=== PATIENT | male | born 1980 | race Caucasian/White ===

== ENCOUNTER 2017-08-14 23:09 | Inpatient (IN) | payer OTHER ==
[~2017-08-14] VITALS: Ht 190.5 cm; Wt 150.7 kg
[~2017-08-14 23:09] MED LIST: BACT800T5 PO; METH750T2 PO; MOBI15TA PO
[2017-08-14 23:22] VITALS: BP 166/84; PULSE 115; RESP 18; TEMP 100.8; O2SAT 96
[2017-08-14 23:40] VITALS: PULSE 112; RESP 22; TEMP 102.9; O2SAT 97
[2017-08-14 23:50] VITALS: BP 167/84; PULSE 112; RESP 18; TEMP 102.9; O2SAT 97
[2017-08-15] VITALS (8 sets, daily range): BP systolic 107–138; BP diastolic 51–68; PULSE 85–102; RESP 16–20; TEMP 97.6–99.4; O2SAT 96–99
[2017-08-15] MEDS ORDERED: ACETAMINOPHEN 500 MG CPLT PO ONE
[2017-08-15] MEDS ORDERED: IBUPROFEN 800 MG TAB PO ONE
--- NOTE | 2017-08-15 00:14 | RADRPT ---
EXAM DATE/TIME: 08/15/2017 00:03 [facility] COMPARISON: No previous studies available for comparison. INDICATIONS : Chest pain. MEDICAL HISTORY : None. SURGICAL HISTORY : None. ENCOUNTER: Initial ACUITY: 2 days PAIN SCORE: 6/10 LOCATION: Bilateral chest FINDINGS: A single view of the chest demonstrates the lungs to be symmetrically aerated without evidence of mas s, infiltrate or effusion. The cardiomediastinal contours are unremarkable. Osseous structures are intact. CONCLUSION: No acute disease. Jorge Garcia MD on August 15, 2017 at 0:12 Board Certified Radiologist. This report was verified electronically.
[2017-08-15 00:19] LABS: GLUCOSE,URINE 500 mg/dL (NEG); KETONE, URINE NEG (NEG); NITRITE,URINE NEG (NEG); PH, URINE 6.5 (5.0-8.5)
[2017-08-15 00:31] LABS: BLOOD, URINE TRACE (NEG); METHOD OF COLLECTION CLEAN CATCH; URINE COLOR YELLOW (YELLW/STRAW)
[2017-08-15 00:32] LABS: SQUAMOUS EPITHELIAL CELL URINE 0-5 /hpf (0-5)
[2017-08-15 00:33] LABS: BACTERIA, URINE OCC /hpf; COMMENT (UR) CULTURE INDICATED; CULTURE IF INDICATED CULTURE INDICATED
[2017-08-15] MEDS ORDERED: cefTRIAXone INJ 1,000 MG in SODIUM CHLORIDE 0.9% INJ 100 ML IV ONE (00:45)
--- NOTE | 2017-08-15 00:46 | PD ---
HPI Chief Complaint: Cold / Flu Symptoms Time Seen by Provider: 23:47 Travel History International Travel<30 days: No Contact w/Intl Traveler<30days: No Traveled to known affect area: No History of Present Illness HPI 36-year-old male presents to the emergency department by private transportation the care of his throat complaint of not feeling well 2 days. Patient states she's had persistent cough times one month and has been seen by his primary care provider without improvement after steroid and oral antibiotic. Patient states while recently in the past 48 hours as developed myalgias arthralgias headaches persistent cough and has noted some dysuria. Patient does not have any discharge. Patient has been treated in the past for urinary tract infection. Patient does not report nausea vomiting abdominal pain or diarrhea. Patient rates overall pain 8/10 in intensity. Patient is unable to identify exacerbating or alleviating factors. Patient did take a one-time dose of DayQuil earlier in the afternoon. PFSH Past Medical History Narrative Medical Negative past history negative surgical history no tobacco use nursing notes reviewed Diminished Hearing: No Tetanus Vaccination: < 5 Years ?: Not Social History Alcohol Use: No Tobacco Use: No Substance Use: No Allergies-Medications (Allergen,Severity, Reaction): Coded Allergies: No Known Allergies (Verified , 10/09/14) Reported Meds & Prescriptions Reported Meds & Active Scripts Active Review of Systems Except as stated in HPI: all other systems reviewed are Neg General / Constitutional: Positive: Fever, Chills HENT: Positive: Congestion Cardiovascular: No: Chest Pain or Discomfort Respiratory: Positive: Cough, No: Shortness of Breath Gastrointestinal: Positive: Nausea, No: Vomiting, Diarrhea, Abdominal Pain Genitourinary: Positive: Dysuria, No: Flank Pain, Discharge Musculoskeletal: Positive: Myalgias, Arthralgias Skin: No Rash Neurologic: No: Weakness, Dizziness, Syncope Psychiatric: No: Anxiety Hematologic/Lymphatic: No: Easy Bruising, Lymph Node Enlargement Physical Exam Narrative GENERAL: Well-developed well-nourished male in no acute distress but noted to have fever associated tachycardia and elevated blood pressure is triage vital signs SKIN: Warm and dry. HEAD: Normocephalic. EYES: No scleral icterus. No injection or drainage. ENT: Mucous membranes moist airway is patent no tonsillar exudative change edema or erythema; tympanic membranes no redness dullness or loss of landmarks NECK: Supple, trachea midline. No JVD or lymphadenopathy. No meningismus no nuchal rigidity CARDIOVASCULAR: Increased Regular rate and rhythm without murmurs, gallops, or rubs. RESPIRATORY: Breath sounds equal bilaterally. No accessory muscle use. GASTROINTESTINAL: Abdomen soft, non-tender, nondistended. MUSCULOSKELETAL: No cyanosis, or edema. BACK: Nontender without obvious deformity. No CVA tenderness. Data Data Last Documented VS Vital Signs Date Time Temp Pulse Resp B/P (MAP) Pulse Ox O2 Delivery O2 Flow Rate FiO2 08/15/17 02:30 85 16 124/64 (84) 99 Room Air 08/15/17 01:15 99.1 Orders Orders ^ Saline Lock (08/14/17 23:47) Ibuprofen (Motrin) (08/15/17 00:00) Acetaminophen (Tylenol) (08/15/17 00:00) Influenzae A/B Antigen (08/14/17 23:47) Chest, Single Ap (08/14/17 ) Urinalysis - C+S If Indicated (08/14/17 23:47) Urine Culture (08/15/17 00:00) Ceftriaxone Inj (Rocephin Inj) (08/15/17 00:45) Blood Culture (08/15/17 00:46) Complete Blood Count With Diff (08/15/17 00:46) Lactic Acid (08/15/17 00:46) Sodium Chlor 0.9% 1000 Ml Inj (Ns 1000 M (08/15/17 01:30) Lactic Acid (08/15/17 02:07) Labs Laboratory Tests Test 08/15/17 00:00 08/15/17 01:10 08/15/17 02:20 Urine Collection Type CLEAN CATCH Urine Color YELLOW Urine Turbidity SLIGHT Urine pH 6.5 Urine Specific [place] 1.023 Urine Protein TRACE mg/dL Urine Glucose (UA) 500 mg/dL Urine Ketones NEG mg/dL Urine Occult Blood TRACE Urine Nitrite NEG Urine Bilirubin NEG Urine Leukocyte Esterase MOD Urine RBC 4-9 /hpf Urine WBC 25-49 /hpf Urine WBC Clumps OCC Urine Squamous Epithelial Cells 0-5 /hpf Urine Amorphous Sediment SMALL Urine Bacteria OCC /hpf Microscopic Urinalysis Comment CULTURE INDICATED White Blood Count 16.1 TH/MM3 Red Blood Count 5.00 MIL/MM3 Hemoglobin 14.1 GM/DL Hematocrit 42.3 % Mean Corpuscular Volume 84.5 FL Mean Corpuscular Hemoglobin 28.2 PG Mean Corpuscular Hemoglobin Concent 33.4 % Red Cell Distribution Width 12.8 % Platelet Count 157 TH/MM3 Mean Platelet Volume 7.7 FL Neutrophils (%) (Auto) 85.6 % Lymphocytes (%) (Auto) 7.4 % Monocytes (%) (Auto) 6.0 % Eosinophils (%) (Auto) 0.1 % Basophils (%) (Auto) 0.9 % Neutrophils # (Auto) 13.8 TH/MM3 Lymphocytes # (Auto) 1.2 TH/MM3 Monocytes # (Auto) 1.0 TH/MM3 Eosinophils # (Auto) 0.0 TH/MM3 Basophils # (Auto) 0.1 TH/MM3 CBC Comment AUTO DIFF Differential Comment AUTO DIFF CONFIRMED Platelet Estimate NORMAL Platelet Morphology Comment CLUMPED Red Cell Morphology Comment NORMAL Lactic Acid Level 3.6 mmol/L MDM Medical Decision Making Medical Screen Exam Complete: Yes Emergency Medical Condition: Yes Medical Record Reviewed: Yes Interpretation(s) Last Impressions Chest X-Ray 08/14/17 0000 Signed Impressions: Service Date/Time: Sunday, August 15, 2017 00:03 - CONCLUSION: No acute disease. Jorge Garcia MD CBC & BMP Diagram 08/15/17 01:10 Vital Signs Date Time Temp Pulse Resp B/P (MAP) Pulse Ox O2 Delivery O2 Flow Rate FiO2 08/15/17 02:30 85 16 124/64 (84) 99 Room Air 08/15/17 01:15 99.1 95 16 132/66 (88) 98 Room Air 08/14/17 23:50 102.9 112 18 167/84 (111) 97 Room Air 08/14/17 23:49 18 98 Room Air 08/14/17 23:40 102.9 112 22 97 08/14/17 23:22 100.8 115 18 166/84 (111) 96 UA: Differential Diagnosis Viral syndrome, influenza, pneumonia, UTI, sepsis, sirs, dehydration Narrative Course IV access obtained specimens collected and sent for resulting patient administered normal saline bolus along with ibuprofen weight-based in acetaminophen weight-based Urinalysis abnormal with positive white blood cells red blood cells and bacteria cultures indicated influenza A/B antigen negative Review of abnormal urinalysis patient will be given IV antibiotic Rocephin 1 g prior to administration of antibiotics blood culture specimens Lactic acid is elevated 3.6 additional IV fluids administered Patient continues complaining of myalgias arthralgias and feeling weak therefore will place patient in for IV antibiotics and observation status for ongoing IV fluid hydration and ongoing IV antibiotics. repeat lactic acid ordered Sepsis Criteria SIRS Criteria (2 or more): Temp > 100.9 or < 96.8, Heart rate over 90, RR > 20 or PaCO2 < 32, WBC > 67032, < 4000 or > 10% bands Sepsis Criteria (SIRS+source): Infect source susp/known (urine) Physician Communication Physician Communication discussed with [facility] service MD Diagnosis Primary Impression: Sepsis Qualified Codes: A41.9 - Sepsis, unspecified organism Additional Impression: UTI (urinary tract infection) Qualified Codes: N30.00 - Acute cystitis without hematuria Admitting Information Admitting Physician Requests: Observation Megan Elizalde MD Aug 15, 2017 00:46
[2017-08-15 01:27] LABS: AUTOMATED NEUTROPHIL # 13.8 TH/MM3 (1.8-7.7); BASOPHIL # 0.1 TH/MM3 (0-0.2); BASOPHIL % 0.9 % (0.0-2.0); EOSINOPHIL % 0.1 % (0.0-4.0); HEMATOCRIT 42.3 % (39.0-51.0); LYMPH % 7.4 % (9.0-44.0); LYMPHOCYTE # 1.2 TH/MM3 (1.0-4.8); MEAN CELL VOLUME 84.5 FL (80.0-100.0); MEAN CORPUSCULAR HEMOGLOBIN 28.2 PG (27.0-34.0); MEAN CORPUSCULAR HGB CONC 33.4 % (32.0-36.0); NEUT % 85.6 % (16.0-70.0); PLATELET COUNT 157 TH/MM3 (150-450); RED CELL DISTRIBUTION WIDTH 12.8 % (11.6-17.2); WHITE BLOOD COUNT 16.1 TH/MM3 (4.0-11.0)
[2017-08-15] MEDS ORDERED: SODIUM CHLOR 0.9% 1000 ML INJ 1,000 ML IV ONE (01:30)
[2017-08-15 01:35] LABS: HEMO FLAGS AUTO DIFF
[2017-08-15 01:52] LABS: PLATELET ESTIMATE SMEAR NORMAL (NORMAL); PLATELET MORPHOLOGY CLUMPED (NORMAL); SCAN/DIFF AUTO DIFF CONFIRMED
[2017-08-15] MEDS ORDERED: MAGNESIUM HYDROXIDE SUSP 30 ML CUP PO PRN (03:30)
[2017-08-15] MEDS ORDERED: SENNOSIDES 8.6 MG TAB PO PRN (03:30)
[2017-08-15] MEDS ORDERED: LACTULOSE SYRUP 20 GM/30 ML CUP PO PRN (03:30)
[2017-08-15] MEDS ORDERED: BISACODYL 10 MG SUPP RECTAL PRN (03:30)
[2017-08-15] MEDS ORDERED: NALOXONE HCL 0.4 MG/ML AMP IV PUSH PRN (03:30)
[2017-08-15] MEDS ORDERED: SODIUM CHLORIDE 0.9% FLUSH 10 ML FLUSH IV FLUSH PRN (03:30)
[2017-08-15] MEDS ORDERED: ONDANSETRON HCL 4 MG/2 ML VIAL IVP PRN (03:30)
[2017-08-15 03:45] LABS: CHLORIDE 96 MEQ/L (98-107); POTASSIUM 3.9 MEQ/L (3.5-5.1); SODIUM (NA) 129 MEQ/L (136-145)
[2017-08-15 03:48] LABS: ANION GAP 12 MEQ/L (5-15); BICARBONATE 20.9 MEQ/L (21.0-32.0); BLOOD UREA NITROGEN 13 MG/DL (7-18)
[2017-08-15 03:51] LABS: ALT (GPT) 28 U/L (12-78); AST (GOT) 11 U/L (15-37)
[2017-08-15 03:52] LABS: GLOMERULAR FILTRATION RATE 53 ML/MIN (>89)
[2017-08-15 03:53] LABS: TOTAL BILIRUBIN ADULT 1.4 MG/DL (0.2-1.0)
[2017-08-15 03:54] LABS: ALKALINE PHOSPHATASE 127 U/L (45-117)
[2017-08-15] MEDS: SODIUM CHLOR 0.9% 1000 ML INJ 1,000 ML IV SCH ×3 (06:55→21:17)
[2017-08-15] MEDS: SODIUM CHLORIDE 0.9% FLUSH 10 ML FLUSH IV FLUSH SCH ×2 (08:39→21:18)
--- NOTE | 2017-08-15 09:52 | RADRPT ---
EXAM DATE/TIME: 08/15/2017 07:56 [facility] COMPARISON: No previous studies available for comparison. INDICATIONS : Abnormal labs. Sepsis. Urinary tract infection. MEDICAL HISTORY : Sepsis. Urinary tract infection. SURGICAL HISTORY : None. ENCOUNTER: Initial ACUITY: 4-6 days PAIN SCORE: 2/10 LOCATION: Bilateral flank MEASUREMENTS: RIGHT KIDNEY: 13.6 x 6.6 x 8.6 cm LEFT KIDNEY: 14.3 x 7.7 x 7.9 cm FINDINGS: RIGHT KIDNEY: 5.1 cm cyst midportion right kidney without stone or obstruction. LEFT KIDNEY: 6.8 cm cyst midportion left kidney without stone or obstruction. BLADDER: Within normal limits given the degree of distension. CONCLUSION: Bilateral renal cysts, negative for obstruction or stone.. Raleigh Peguero MD FACR on August 15, 2017 at 9:49 Board Certified Radiologist. This report was verified electronically.
[2017-08-15] MEDS ORDERED: GLUCAGON 1 MG/ML VIAL OTHER PRN (11:45)
[2017-08-15] MEDS ORDERED: DEXTROSE 50% IN WATER 50 ML VIAL(D50) IV PUSH PRN (11:45)
[2017-08-15] MEDS: INSULIN ASPART SUPPLEMENTAL SCALE SQ SCH ×3 (12:00→21:00)
--- NOTE | 2017-08-15 12:08 | HHI.HP ---
[facility] Service [facility] Primary Care Physician Alex Akers M.D. Admission Diagnosis sepsis; uti Diagnoses: Chief Complaint: Palpable myocardial perfusion old and he is also he is here I think all of the knee is worse Travel History International Travel<30 Days: No Contact w/Intl Traveler <30 Da: No Traveled to Known Affected Are: No History of Present Illness This patient's 36-year-old gentleman with one-month history of intermittent subjective fevers and chills and a cough with some phlegm. There were no objective fevers. He saw his primary care physician and was given antibiotics, steroids and antitussive's. He does not improve consistently. He had some good days and some bad days. This past 3 days he had decreased urine output with urgency. He came to emergency room was found have urinary tract infection as well as a random blood sugar of 277. Patient was admitted to the hospital for further evaluation and treatment. He has no pain complaint Review of Systems Constitutional: DENIES: Diaphoretic episodes, Fatigue, Fever, Weight gain, Weight loss, Chills, Dizziness, Change in appetite, Night Sweats Endocrine: DENIES: Heat/cold intolerance, Polydipsia, Polyuria, Polyphagia Eyes: DENIES: Blurred vision, Diplopia, Eye inflammation, Eye pain, Vision loss , Photosensitivity, Double Vision Ears, nose, mouth, throat: DENIES: Tinnitus, Hearing loss, Vertigo, Nasal discharge, Oral lesions, Throat pain, Hoarseness, Ear Pain, Running Nose, Epistaxis, Sinus Pain, Toothache, Odynophagia Respiratory: DENIES: Apneas, Cough, Snoring, Wheezing, Hemoptysis, Sputum production, Shortness of breath Cardiovascular: DENIES: Chest pain, Palpitations, Syncope, Dyspnea on Exertion , PND, Lower Extremity Edema, Orthopnea, Claudication Gastrointestinal: DENIES: Abdominal pain, Black stools, Bloody stools, Constipation, Diarrhea, Nausea, Vomiting, Difficulty Swallowing, Anorexia Genitourinary: DENIES: Sexual dysfunction, Urinary frequency, Urinary incontinence, Urgency, Hematuria, Dysuria, Nocturia, Penile Discharge, Testicular Pain, Testicular Swelling Musculoskeletal: DENIES: Joint pain, Muscle aches, Stiffness, Joint Swelling, Back pain, Neck pain Integumentary: DENIES: Abnormal pigmentation, Nail changes, Pruritus, Rash Hematologic/lymphatic: DENIES: Bruising, Lymphadenopathy Immunologic/allergic: DENIES: Eczema, Urticaria Neurologic: DENIES: Abnormal gait, Headache, Localized weakness, Paresthesias, Seizures, Speech Problems, Tremor, Poor Balance Psychiatric: DENIES: Anxiety, Confusion, Mood changes, Depression, Hallucinations, Agitation, Suicidal Ideation, Homicidal Ideation, Delusions Except as stated in HPI: all other systems reviewed are Neg Past Family Social History Past Medical History Denies Past Surgical History Denies Reported Medications Reviewed in the EMR, [id number] Pepcid and recent antibiotics, steroids for respiratory infection Allergies: Coded Allergies: No Known Allergies (Verified Allergy, Unknown, 08/15/17) Active Ordered Medications reviewed in the EMR Family History Mother and father alive and well Social History No tobacco or alcohol dependency, works for [employer] Physical Exam Vital Signs Vital Signs Date Time Temp Pulse Resp B/P (MAP) Pulse Ox O2 Delivery O2 Flow Rate FiO2 08/15/17 07:50 97.6 89 20 107/51 (69) 98 08/15/17 03:40 99.2 88 16 138/68 (91) 98 Room Air 08/15/17 02:30 85 16 124/64 (84) 99 Room Air 08/15/17 01:15 99.1 95 16 132/66 (88) 98 Room Air 08/14/17 23:50 102.9 112 18 167/84 (111) 97 Room Air 08/14/17 23:49 18 98 Room Air 08/14/17 23:40 102.9 112 22 97 08/14/17 23:22 100.8 115 18 166/84 (111) 96 Physical Exam GENERAL: This is a ill-appearing, obese, well-developed patient, in no apparent distress. SKIN: No rashes, ecchymoses or lesions. Cool and dry. HEAD: Atraumatic. Normocephalic. No temporal or scalp tenderness. EYES: Pupils equal round and reactive. Extraocular motions intact. No scleral icterus. No injection or drainage. ENT: Nose without bleeding, purulent drainage or septal hematoma. Throat without erythema, tonsillar hypertrophy or exudate. Uvula midline. Airway patent. NECK: Trachea midline. No JVD or lymphadenopathy. Supple, nontender, no meningeal signs. CARDIOVASCULAR: Regular rate and rhythm without murmurs, gallops, or rubs. RESPIRATORY: Clear to auscultation. Breath sounds equal bilaterally. No wheezes , rales, or rhonchi. GASTROINTESTINAL: Abdomen soft, non-tender, nondistended. No hepato-splenomegaly , or palpable masses. No guarding. MUSCULOSKELETAL: Extremities without clubbing, cyanosis, or edema. No joint tenderness, effusion, or edema noted. No calf tenderness. Negative Homans sign bilaterally. NEUROLOGICAL: Awake and alert. Cranial nerves II through XII intact. Motor and sensory grossly within normal limits. Five out of 5 muscle strength in all muscle groups. Normal speech. Laboratory Laboratory Tests Test 08/15/17 00:00 08/15/17 01:10 08/15/17 02:20 Urine Collection Type CLEAN CATCH Urine Color YELLOW Urine Turbidity SLIGHT Urine pH 6.5 Urine Specific [place] 1.023 Urine Protein TRACE Urine Glucose (UA) 500 Urine Ketones NEG Urine Occult Blood TRACE Urine Nitrite NEG Urine Bilirubin NEG Urine Leukocyte Esterase MOD Urine RBC 4-9 Urine WBC 25-49 Urine WBC Clumps OCC Urine Squamous Epithelial Cells 0-5 Urine Amorphous Sediment SMALL Urine Bacteria OCC Microscopic Urinalysis Comment CULTURE INDICATED White Blood Count 16.1 Red Blood Count 5.00 Hemoglobin 14.1 Hematocrit 42.3 Mean Corpuscular Volume 84.5 Mean Corpuscular Hemoglobin 28.2 Mean Corpuscular Hemoglobin Concent 33.4 Red Cell Distribution Width 12.8 Platelet Count 157 Mean Platelet Volume 7.7 Neutrophils (%) (Auto) 85.6 Lymphocytes (%) (Auto) 7.4 Monocytes (%) (Auto) 6.0 Eosinophils (%) (Auto) 0.1 Basophils (%) (Auto) 0.9 Neutrophils # (Auto) 13.8 Lymphocytes # (Auto) 1.2 Monocytes # (Auto) 1.0 Eosinophils # (Auto) 0.0 Basophils # (Auto) 0.1 CBC Comment AUTO DIFF Differential Comment AUTO DIFF CONFIRMED Platelet Estimate NORMAL Platelet Morphology Comment CLUMPED Red Cell Morphology Comment NORMAL Blood Urea Nitrogen 13 Creatinine 1.50 Random Glucose 277 Total Protein 7.4 Albumin 3.3 Calcium Level 8.5 Alkaline Phosphatase 127 Aspartate Amino Transf (AST/SGOT) 11 Alanine Aminotransferase (ALT/SGPT) 28 Total Bilirubin 1.4 Sodium Level 129 Potassium Level 3.9 Chloride Level 96 Carbon Dioxide Level 20.9 Anion Gap 12 Estimat Glomerular Filtration Rate 53 Lactic Acid Level 3.6 1.8 Date/Time Source Procedure Growth Status 08/15/17 01:10 Blood Peripheral Aerobic Blood Culture Pending Received 08/15/17 01:10 Blood Peripheral Anaerobic Blood Culture Pending Received 08/15/17 00:00 Nasal Washing Influenza Types A,B Antigen (REBECCA) - Final NEGATIVE FOR FLU A AND B ANTIGEN.... Complete 08/15/17 00:00 Urine Clean Catch Urine Culture Pending Received Result Diagram: 08/15/17 0110 08/15/17 0110 Imaging Last Impressions Renal Ultrasound 08/15/17 0000 Signed Impressions: Service Date/Time: Tuesday, August 15, 2017 07:56 - CONCLUSION: Bilateral renal cysts, negative for obstruction or stone.. Raleigh Peguero MD FACR Chest X-Ray 08/14/17 0000 Signed Impressions: Service Date/Time: Tuesday, August 15, 2017 00:03 - CONCLUSION: No acute disease. Jorge Garcia MD Septic Shock Reassessment Heart: Regular rate and rhythm Lungs: Clear Skin: Warm Peripheral Pulses: Bounding Right Radial Bounding Left Radial Bounding Right Popliteal Bounding Left Popliteal Bounding Right Dorsalis Pedis Bounding Left Dorsalis Pedis Bounding Right Posterior Tibial Bounding Left Posterior Tibial Caprini VTE Risk Assessment Caprini VTE Risk Assessment: Mod/High Risk (score >= 2) Caprini Risk Assessment Model Point Value = 1 Point Value = 2 Point Value = 3 Point Value = 5 Age 41-60 Minor surgery BMI > 25 kg/m2 Swollen legs Varicose veins or History of unexplained or recurrent spontaneous Oral contraceptives or hormone replacement Sepsis (< 1 month) Serious lung disease, including pneumonia (< 1 month) Abnormal pulmonary function Acute myocardial infarction Congestive heart failure (< 1 month) History of inflammatory bowel disease Medical patient at bed rest Age 61-74 Arthroscopic surgery Major open surgery (> 45 min) Laparoscopic surgery (> 45 min) Malignancy Confined to bed (> 72 hours) Immobilizing plaster cast Central venous access Age >= 75 History of VTE Family history of VTE Factor V Leiden Prothrombin [id number] Lupus anticoagulant Anticardiolipin antibodies Elevated serum homocysteine Heparin-induced thrombocytopenia Other congenital or acquired thrombophilia Stroke (< 1 month) Elective arthroplasty Hip, pelvis, or leg fracture Acute spinal cord injury (< 1 month) Prophylaxis Regimen Total Risk Factor Score Risk Level Prophylaxis Regimen 0-1 Low Early ambulation 2 Moderate Order ONE of the following: *Sequential Compression Device (SCD) *Heparin 5000 units SQ BID 3-4 Higher Order ONE of the following medications: *Heparin 5000 units SQ TID *Enoxaparin/Lovenox 40 mg SQ daily (WT < 150 kg, CrCl > 30 mL/min) *Enoxaparin/Lovenox 30 mg SQ daily (WT < 150 kg, CrCl > 10-29 mL/min) *Enoxaparin/Lovenox 30 mg SQ BID (WT < 150 kg, CrCl > 30 mL/min) AND/OR *Sequential Compression Device (SCD) 5 or more Highest Order ONE of the following medications: *Heparin 5000 units SQ TID (Preferred with Epidurals) *Enoxaparin/Lovenox 40 mg SQ daily (WT < 150 kg, CrCl > 30 mL/min) *Enoxaparin/Lovenox 30 mg SQ daily (WT < 150 kg, CrCl > 10-29 mL/min) *Enoxaparin/Lovenox 30 mg SQ BID (WT < 150 kg, CrCl > 30 mL/min) AND *Sequential Compression Device (SCD) Assessment and Plan Problem List: (1) Sepsis ICD Code: A41.9 - Sepsis, unspecified organism Status: Acute Plan: likely secondary to UTI, cultures pending White cell count pending Lactic acid improved (2) Hyperglycemia ICD Code: R73.9 - Hyperglycemia, unspecified Plan: We'll add sliding scale insulin Follow-up hemoglobin A1c Continue IV hydration (3) UTI (urinary tract infection) ICD Code: N39.0 - Urinary tract infection, site not specified Status: Acute Plan: Continue empiric Rocephin and follow cultures Patient with improved lactic acid. Follow fever and white cell counts (4) Dyspepsia ICD Code: R10.13 - Epigastric pain Plan: Pepcid twice a day Code Status full code Discussed Condition With Patient, nursing team Physician Certification 2 Midnight Certification Type: Admission for Inpatient Services Order for Inpatient Services The services are ordered in accordance with Medicare regulations or non- Medicare payer requirements, as applicable. In the case of services not specified as inpatient-only, they are appropriately provided as inpatient services in accordance with the 2-midnight benchmark. Estimated LOS (days): 2 2 days is the estimated time the patient will need to remain in the hospital, assuming treatment plan goals are met and no additional complications. Post-Hospital Plan: Home Problem Qualifiers (1) Sepsis: Qualified Codes: A41.9 - Sepsis, unspecified organism (2) UTI (urinary tract infection): Qualified Codes: N30.00 - Acute cystitis without hematuria Amy Trimble MD Aug 15, 2017 12:08
[2017-08-15] MEDS: FAMOTIDINE 20 MG TAB PO SCH ×2 (12:10→21:18)
[2017-08-15] MEDS: ENOXAPARIN SODIUM 40 MG/0.4 ML SYRINGE SQ SCH (13:20)
[2017-08-15] MEDS: ACETAMINOPHEN 325 MG TAB PO PRN ×2 (15:22→19:06)
[2017-08-15 19:14] LABS: HEMOGLOBIN A1b 1.2 %; HEMOGLOBIN Ao 83.6 %; HEMOGLOBIN F 0.9 %; HEMOGLOBIN P3 4.1 %
[2017-08-16] VITALS: BP 113/60; PULSE 97; RESP 20; TEMP 99.8; O2SAT 99
[2017-08-16] MEDS ORDERED: cefTRIAXone INJ 1,000 MG in SODIUM CHLORIDE 0.9% INJ 100 ML IV SCH (01:00)
[2017-08-16] MEDS ORDERED: BENZONATATE 100 MG CAP PO ONE (01:15)
[2017-08-16] MEDS: SODIUM CHLOR 0.9% 1000 ML INJ 1,000 ML IV SCH (05:14)
[2017-08-16 06:33] LABS: AUTOMATED NEUTROPHIL # 7.3 TH/MM3 (1.8-7.7); BASOPHIL % 0.2 % (0.0-2.0); EOSINOPHIL # 0.2 TH/MM3 (0-0.4); HEMATOCRIT 37.6 % (39.0-51.0); LYMPH % 15.5 % (9.0-44.0); LYMPHOCYTE # 1.5 TH/MM3 (1.0-4.8); MEAN CELL VOLUME 83.9 FL (80.0-100.0); MEAN CORPUSCULAR HEMOGLOBIN 28.5 PG (27.0-34.0); MEAN CORPUSCULAR HGB CONC 33.9 % (32.0-36.0); MONO % 6.8 % (0.0-8.0); NEUT % 75.5 % (16.0-70.0); PLATELET COUNT 143 TH/MM3 (150-450); RED BLOOD COUNT 4.48 MIL/MM3 (4.50-5.90); RED CELL DISTRIBUTION WIDTH 12.7 % (11.6-17.2); WHITE BLOOD COUNT 9.8 TH/MM3 (4.0-11.0)
[2017-08-16 06:37] LABS: HEMO FLAGS DIFF FINAL
[2017-08-16 07:19] LABS: ALKALINE PHOSPHATASE 118 U/L (45-117); ALT (GPT) 30 U/L (12-78); ANION GAP 9 MEQ/L (5-15); AST (GOT) 24 U/L (15-37); BICARBONATE 22.5 MEQ/L (21.0-32.0); BLOOD UREA NITROGEN 9 MG/DL (7-18); CHLORIDE 104 MEQ/L (98-107); GLOMERULAR FILTRATION RATE 107 ML/MIN (>89); POTASSIUM 3.9 MEQ/L (3.5-5.1); SODIUM (NA) 135 MEQ/L (136-145); TOTAL BILIRUBIN ADULT 0.9 MG/DL (0.2-1.0)
[2017-08-16] MEDS: SODIUM CHLORIDE 0.9% FLUSH 10 ML FLUSH IV FLUSH SCH (07:28)
[2017-08-16 08:00] VITALS: BP 152/100; PULSE 94; RESP 18; TEMP 97.4; O2SAT 98
[2017-08-16] MEDS: INSULIN ASPART SUPPLEMENTAL SCALE SQ SCH (08:00)
[2017-08-16] MEDS: FAMOTIDINE 20 MG TAB PO SCH (08:35)
[2017-08-16] MEDS: ENOXAPARIN SODIUM 40 MG/0.4 ML SYRINGE SQ SCH (08:39)
[2017-08-16] MEDS ORDERED: INFLUENZA VIRUS VACCINE (QUADRIVALENT) 0.5 ML SYR IM ONE (10:00)
[2017-08-16] MEDS ORDERED: CIPR500T2 PO (11:54)
--- NOTE | 2017-08-16 11:54 | HHI.DCPOC ---
Discharge Care Plan Diagnosis: (1) UTI (urinary tract infection) (2) Sepsis (3) Hyperglycemia Goals to Promote Your Health * To prevent worsening of your condition and complications * To maintain your health at the optimal level Directions to Meet Your Goals Take your medications as prescribed Follow your dietary instruction Follow activity as directed Keep your appointments as scheduled Take your immunizations and boosters as scheduled If your symptoms worsen call your PCP, if no PCP go to Urgent Care Center or Emergency Room Smoking is Dangerous to Your Health. Avoid second hand smoke Call the 24-hour hour crisis hotline for domestic abuse at Amy Trimble MD Aug 16, 2017 11:54
--- NOTE | 2017-08-16 11:59 | HHI.DS ---
Discharge Summary Admission Date Aug 15, 2017 at 03:23 Discharge Date: Aug 16, 2017 Admitting Diagnosis sepsis; uti (1) Sepsis ICD Code: A41.9 - Sepsis, unspecified organism Status: Acute (2) Hyperglycemia ICD Code: R73.9 - Hyperglycemia, unspecified (3) UTI (urinary tract infection) ICD Code: N39.0 - Urinary tract infection, site not specified Status: Acute (4) Dyspepsia ICD Code: R10.13 - Epigastric pain Procedures None Brief History - From Admission This patient's 36-year-old gentleman with one-month history of intermittent subjective fevers and chills and a cough with some phlegm. There were no objective fevers. He saw his primary care physician and was given antibiotics, steroids and antitussive's. He does not improve consistently. He had some good days and some bad days. This past 3 days he had decreased urine output with urgency. He came to emergency room was found have urinary tract infection as well as a random blood sugar of 277. Patient was admitted to the hospital for further evaluation and treatment. He has no pain complaint CBC/BMP: 08/16/17 0555 08/16/17 0555 Significant Findings Laboratory Tests Test 08/15/17 00:00 08/15/17 01:10 08/15/17 02:20 08/16/17 05:55 Urine Glucose (UA) 500 mg/dL (NEG) Urine Occult Blood TRACE (NEG) Urine Leukocyte Esterase MOD (NEG) Urine RBC 4-9 /hpf (0-3) Urine WBC 25-49 /hpf (0-5) Urine WBC Clumps OCC (NONE) Urine Bacteria OCC /hpf (NONE) White Blood Count 16.1 TH/MM3 (4.0-11.0) Neutrophils (%) (Auto) 85.6 % (16.0-70.0) 75.5 % (16.0-70.0) Lymphocytes (%) (Auto) 7.4 % (9.0-44.0) Neutrophils # (Auto) 13.8 TH/MM3 (1.8-7.7) Monocytes # (Auto) 1.0 TH/MM3 (0-0.9) Platelet Morphology Comment CLUMPED (NORMAL) Creatinine 1.50 MG/DL (0.60-1.30) Random Glucose 277 MG/DL (74-106) 153 MG/DL (74-106) Albumin 3.3 GM/DL (3.4-5.0) 2.7 GM/DL (3.4-5.0) Alkaline Phosphatase 127 U/L (45-117) 118 U/L (45-117) Aspartate Amino Transf (AST/SGOT) 11 U/L (15-37) Total Bilirubin 1.4 MG/DL (0.2-1.0) Sodium Level 129 MEQ/L (136-145) 135 MEQ/L (136-145) Chloride Level 96 MEQ/L (98-107) Carbon Dioxide Level 20.9 MEQ/L (21.0-32.0) Estimat Glomerular Filtration Rate 53 ML/MIN (>89) Lactic Acid Level 3.6 mmol/L (0.4-2.0) Red Blood Count 4.48 MIL/MM3 (4.50-5.90) Hemoglobin 12.8 GM/DL (13.0-17.0) Hematocrit 37.6 % (39.0-51.0) Platelet Count 143 TH/MM3 (150-450) Calcium Level 7.9 MG/DL (8.5-10.1) Imaging Last Impressions Renal Ultrasound 08/15/17 0000 Signed Impressions: Service Date/Time: Tuesday, August 15, 2017 07:56 - CONCLUSION: Bilateral renal cysts, negative for obstruction or stone.. Raleigh Peguero MD FACR Chest X-Ray 08/14/17 0000 Signed Impressions: Service Date/Time: Tuesday, August 15, 2017 00:03 - CONCLUSION: No acute disease. Jorge Garcia MD PE at Discharge GENERAL: This is a well-nourished, well-developed patient, in no apparent distress. CARDIOVASCULAR: Regular rate and rhythm without murmurs, gallops, or rubs. RESPIRATORY: Clear to auscultation. Breath sounds equal bilaterally. No wheezes , rales, or rhonchi. GASTROINTESTINAL: Abdomen soft, non-tender, nondistended. Normal active bowel sounds MUSCULOSKELETAL: Extremities without clubbing, cyanosis, or edema. NEURO: Alert & Oriented x4 to person, place, time, situation. Moves all ext x4 Pt update on day of discharge Patient seen today in follow-up for UTI with gram neg rods. Plan discussed with patient as well as discharge planning. Patient appears to be hyperglycemic consistently. He will need to follow-up with his primary care doctor for further recognition and treatment He will need dietary lifestyle adjustments Hospital Course this patient was seen and treated for sepsis which resolved very remarkably. With IV fluids and IV antibiotics his indices improved dramatically. Patient was found to have gram-negative rods in urine His hemoglobin A1c was 5.9. Still has random blood sugars which are elevated which likely reflects Early diabetes. Lifestyle modifications discussed with patient Pt Condition on Discharge: Good Discharge Disposition: Discharge Home Discharge Time: <= 30 minutes Discharge Instructions DIET: Follow Instructions for: Diabetic Diet Activities you can perform: Regular-No Restrictions Follow up Referrals: PCP Follow-up - 1 Week New Medications: Ciprofloxacin (Ciprofloxacin) 500 Mg Tab 500 MG PO BID for Infection, #14 TAB 0 Refills Amy Trimble MD Aug 16, 2017 11:59
== END 2017-08-16 13:38 | disposition home or self-care (01) | DRG 872 ==
LOC: PHED 23:09 → PHEDA 08-15 03:23 → PH3A 08-15 05:38
PROVIDERS: ADMIT Hospitalist; ATTEND Hospitalist
DX: A41.9 Sepsis, unspecified organism (principal); N39.0 Urinary tract infection, site not specified; E11.65 Type 2 diabetes mellitus with hyperglycemia; R30.0 Dysuria; Z23 Encounter for immunization; R10.13 Epigastric pain
CPT/HCPCS: 71010; 76775; 80053; 81001; 82948; 83036; 83605; 85025; 87040; 87077; 87086; 87186; 87804; 90471; 90686; 96361; 96365; 99285; G0008; J0696; J1650; J2405; J7030; Q2038

== ENCOUNTER 2017-10-17 12:09 | Emergency (ER) | payer OTHER ==
[~2017-10-17] VITALS: Ht 190.5 cm; Wt 149.4 kg
[~2017-10-17 12:09] MED LIST changes: -BACT800T5 PO; +CIPR500T2 PO; -METH750T2 PO; -MOBI15TA PO
[2017-10-17 12:12] VITALS: BP 123/61; PULSE 104; RESP 18; TEMP 99.4; O2SAT 96
[2017-10-17] MEDS ORDERED: FENO2.5C PO (12:18)
--- NOTE | 2017-10-17 12:53 | PD ---
HPI Chief Complaint: Cold / Flu Symptoms Time Seen by Provider: 12:24 Travel History International Travel<30 days: No Contact w/Intl Traveler<30days: No Traveled to known affect area: No History of Present Illness HPI 37-year-old male here with sore throat, fever, cough 2 days. Symptom severity is moderate. No aggravating or alleviating factors. Temperature this morning was 102 which is brought down after taking 600 mg ibuprofen. No sick contacts. No foreign travel. PFSH Past Medical History Cancer: No Cardiovascular Problems: No High Cholesterol: Yes Chemotherapy: No Diminished Hearing: No Endocrine: No Genitourinary: No Immune Disorder: No Musculoskeletal: No Neurologic: No Psychiatric: No Reproductive: No Respiratory: No Radiation Therapy: No Tetanus Vaccination: Unknown ?: Not Past Surgical History Other Surgery: No Social History Alcohol Use: No Tobacco Use: No Substance Use: No Allergies-Medications (Allergen,Severity, Reaction): Coded Allergies: No Known Allergies (Verified Allergy, Unknown, 10/17/17) Reported Meds & Prescriptions Reported Meds & Active Scripts Active Reported Fenofibrate 50 Mg Cap 50 Mg PO DAILY Review of Systems Except as stated in HPI: all other systems reviewed are Neg General / Constitutional: Positive: Fever Eyes: No: Visual changes HENT: Positive: Sore Throat Cardiovascular: No: Chest Pain or Discomfort Respiratory: Positive: Cough Gastrointestinal: No: Abdominal Pain Genitourinary: No: Dysuria Physical Exam Narrative GENERAL: Alert male. Nontoxic appearing SKIN: Warm and dry. No rash HEAD: Normocephalic. EYES: No injection or drainage. THROAT: Pharyngeal erythema. No tonsillar hypertrophy or exudate. Uvula is midline. Airway is patent. NECK: Supple, trachea midline. No lymphadenopathy. No nuchal rigidity CARDIOVASCULAR: Regular rate and rhythm without murmurs, gallops, or rubs. RESPIRATORY: Breath sounds equal bilaterally. No accessory muscle use. GASTROINTESTINAL: Abdomen soft, non-tender, nondistended. MUSCULOSKELETAL: No cyanosis, or edema. BACK: Nontender without obvious deformity. No CVA tenderness. Data Data Last Documented VS Vital Signs Date Time Temp Pulse Resp B/P (MAP) Pulse Ox O2 Delivery O2 Flow Rate FiO2 10/17/17 12:12 99.4 104 18 123/61 (81) 96 Orders Orders Group A Rapid Strep Screen (10/17/17 12:28) Influenzae A/B Antigen (10/17/17 12:28) Strep Culture (Group A) (10/17/17 12:30) MDM Medical Decision Making Medical Screen Exam Complete: Yes Emergency Medical Condition: Yes Interpretation(s) Influenza A positive Differential Diagnosis Influenza, strep pharyngitis, viral illness Narrative Course 37-year-old male with flulike symptoms. His vital signs are stable. He is ill but nontoxic-appearing. Influenza A is positive. Patient be treated for flu Diagnosis Primary Impression: Influenza A Referrals: Primary Care Physician Departure Forms: Tests/Procedures, Work Release Enter return to work date: Oct 21, 2017 Additional Instructions: Tylenol and ibuprofen for fever. Stay well hydrated by drinking plenty of fluids. Rest. Return if he developed new or worsening symptoms Scripts Oseltamivir (Tamiflu) 75 Mg Cap 75 MG PO BID for Mgmt Viral Infection for 5 Days, #10 CAP 0 Refills Prov: Molly Hubbard 10/17/17 Disposition: 01 DISCHARGE HOME Condition: Stable Molly Hubbard Oct 17, 2017 12:53
[2017-10-17] MEDS ORDERED: OSEL75 PO (12:54)
== END 2017-10-17 13:05 | disposition home or self-care (01) ==
LOC: PHEFT 12:09
DX: J09.X2 Influenza due to identified novel influenza A virus with other respiratory manifestations (principal); E78.00 Pure hypercholesterolemia, unspecified; Z79.899 Other long term (current) drug therapy
CPT/HCPCS: 87081; 87804; 87880; 99283

== ENCOUNTER 2018-01-18 02:55 | Emergency (ER) | payer OTHER ==
[~2018-01-18] VITALS: Ht 190.5 cm; Wt 115.0 kg
[~2018-01-18 02:55] MED LIST changes: -CIPR500T2 PO; +FENO2.5C PO; +OSEL75 PO
[2018-01-18 03:24] VITALS: BP 138/69; PULSE 82; RESP 16; TEMP 98; O2SAT 97
--- NOTE | 2018-01-18 04:00 | RADRPT ---
EXAM DATE/TIME: 01/18/2018 03:47 [facility] COMPARISON: No previous studies available for comparison. INDICATIONS : Pain due to trauma. MEDICAL HISTORY : None. SURGICAL HISTORY : None. ENCOUNTER: Initial ACUITY: 1 day PAIN SCORE: 7/10 LOCATION: Right upper extremity hand, 5th digit, PIP FINDINGS: 2 views of the right fifth digit. Bone alignment within normal limits. No evidence of fracture. No e vidence of joint narrowing. No focal bone erosion. CONCLUSION: No evidence of fracture. Hemant Mina MD on January 18, 2018 at 3:56 Board Certified Radiologist. This report was verified electronically.
[2018-01-18] MEDS ORDERED: IBUPROFEN 600 MG TAB PO ONE (04:30)
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
== END 2018-01-18 04:54 | disposition home or self-care (01) ==
LOC: NEPC 02:55
DX: S69.91XA Unspecified injury of right wrist, hand and finger(s), initial encounter (principal); E78.00 Pure hypercholesterolemia, unspecified; Y35.811A Legal intervention involving manhandling, law enforcement official injured, initial encounter; Z79.899 Other long term (current) drug therapy
CPT/HCPCS: 73140; 99283